=== PATIENT | female | born 1995 | race Caucasian/White ===

== ENCOUNTER 2023-06-15 11:21 | Outpatient (AMB) | payer OTHER, SELFPAY ==
--- NOTE | 2023-06-15 11:24 | A.OFFPC_ITS ---
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 Manufacturer'S Representative Required: No Accompanied by: Self / Same As Patient Allergies No Known Allergies [No Known Allergies*] Allergy (Verified 06/15/23 11:42) Medication List - Last Reconciled 06/15/23 by Chapo Terrazas CNP No Known Home Meds Tobacco use date assessed: 06/15/23 Dental Screening Dental Screen Date: 06/15/23 Did you have a dental visit in the last 12 months?: Yes Did you have a dental problem in the last 6 months where you did not have access to dental care?: No Was dental information given to patient?: Patient has dentist HPI HPI Comments History of Present Illness Details 27-year-old female presents to [facility] care. She notes she was last evaluated by her former PCP and had blood work done a year ago. She reports PMH significant for PCOS, prediabetes, Hidradenitis suppurativa, anxiety, and depression. She notes she was prescribed Metformin for PCOS. She is followed by endocrinology at [facility] for PCOS. She notes Hidradenitis supurativa skin lesions on the armpits, underneath the breasts, and in her perineal area. She followed Dermatology for several years and no treatment was effective. She was last seen by Dermatology 2 years ago. She wished to connect with and with dump truck operator but has to find one that her health plan covers. She notes she has never been on medications for anxiety and depression. She sees a therapist once monthly. She reports controlled symptoms. She reports an A1c was 5.8 on 05/25/2022. She notes she takes and multivitamins daily. She states she exercises routinely. She offers no complaints and denies acute symptoms. She notes her last pap smear was a year ago at [facility]: normal [facility] Medical History (Updated 06/15/23 @ 12:25 by Chapo Terrazas CNP) Hidradenitis suppurativa Diabetes History of PCOS Surgical History (Updated 06/15/23 @ 11:47 by Nilsa Delgado MA) H/O adenoidectomy History of tonsillectomy Family History (Updated 06/15/23 @ 11:47 by Nilsa Delgado MA) Maternal Grandmother Diabetes Social History Housing: Apartment Patient Tobacco Use Status: Never used Tobacco e-Cigarette/Vaping Use: Never Used service: No Current occupational status: employed 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 1. Little interest or pleasure in doing things: more than half the days 2. Feeling down, depressed, or hopeless: more than half the days 3. Trouble falling or staying asleep, or sleeping too much: nearly every day 4. Feeling tired or having little energy: nearly every day 5. Poor appetite or overeating: nearly every day 6. Feeling bad about yourself - or that you are a failure or have let yourself or your family down: several days 7. Trouble concentrating on things, such as reading the newspaper or watching television: nearly every day 8. Moving or speaking so slowly that other people could have noticed. Or the opposite - being so fidgety or restless that you have been moving around a lot more than usual: several days 9. Thoughts that you would be better off or of hurting yourself in some way: not at all Total score: 18 Depression Screening Interpretation: Positive Depression Screening Follow-up: Existing condition and In treatment Source: Developed by Drs. Subhash Mcclelland, Gina Bean, Elton Hanks and colleagues, with an educational lili from [employer]. Thrive Questionnaire Date Thrive assessed: 06/15/23 I am a: Patient What is your living situation today?: I have a steady place to live Within the past 12 months, did the food you bought not last and you didn't have the money to get more?: Often true Within the past 12 months, did you worry whether your food would run out before you got money to buy more?: Sometimes True Do you have trouble paying for medicines?: No Do you have trouble getting transportation to medical appointments?: No Do you have trouble paying your heating and electricity bill?: No Do you have trouble taking care of your child, family member or friend?: No Do you have trouble with day-to-day activities such as bathing, preparing meals, shopping, managing finances, etc.?: No Are you currently unemployed and looking for a job?: No Are you interested in more education?: No Please select the resources that you would like help with: Food Currently or been in a relationship where the following occur: no concerns reported AUDIT C Alcohol Use Questionnaire (AUDIT-C) 1. How often do you have a drink containing alcohol?: Never 3. How often do you have six or more drinks on one occasion?: Never Total Score: 0 LIVIER-7 AMB Questionnaire LIVIER-7 Date LIVIER - 7 assessed: 06/15/23 Feeling nervous, anxious, or on edge: 2 = More than half the days Not being able to stop or control worryin = Nearly every day Worrying too much about different things: 3 = Nearly every day Trouble relaxin = Nearly every day Being so restless that it is hard to sit still: 1 = Several days Becoming easily annoyed or irritable: 3 = Nearly every day Feeling afraid as if something awful might happen: 0 = Not at all Total LIVIER-7 score (0-4 normal; 5-9 mild; 10-14 moderate; 15-21 severe): 15 Source: Developed by Drs. Subhash Mcclelland, Gina Bean, Elton Hanks and colleagues, with an educational lili from [employer]. Review of Systems Const Details: Denies chills, Denies fatigue, Denies fever(s), Denies headache(s) and Denies weakness HEENT Denies change in vision, Denies dizziness, Denies headache(s), Denies hearing loss, Denies nasal congestion, Denies sinus pain, Denies sinus pressure and Denies sore throat Card Denies chest pain, Denies lightheadedness, Denies dyspnea and Denies other (palpitations) Resp Denies cough, Denies dyspnea and Denies wheezing GI Denies abdominal pain, Denies melena, Denies hematochezia, Denies change in bowel habits, Denies dyspepsia and Denies nausea Denies hematuria and Denies dysuria Musc Denies abnormal gait, Denies myalgias, Denies arthralgias, Denies numbness and Denies tingling Skin/Breast Reports as per HPI Neuro Denies abnormal gait, Denies dizziness, Denies headache(s), Denies memory loss, Denies numbness, Denies Sensory deficit (Neuro), Denies tingling and Denies weakness Psych Denies anxiety, Denies depression and Denies memory loss Endo Denies cold intolerance, Denies fatigue, Denies heat intolerance, Denies polydipsia and Denies polyuria Raoul/Lymph Denies easy bleeding and Denies easy bruising Aller/Immun Denies wheezing Physical exam (Primary Care) Vital Signs: Last Vital Signs Temp 97.3 F 06/15/23 11:28 Pulse 83 06/15/23 11:28 Resp 12 06/15/23 11:28 BP 126/64 06/15/23 11:28 Pulse Ox 99 06/15/23 11:28 Oxygen Delivery Method Room Air 06/15/23 11:28 BMI result Body Mass Index 36.1 Depression Screening Interpretation: Positive Depression Screening Follow-up: Existing condition and In treatment Currently or been in a relationship where the following occur: no concerns reported Const Other: General: no acute distress, well developed, alert and awake Nutritional Appearance: well nourished Orientation/consciousness: patient oriented x3 HENMT Head: Yes normocephalic and Yes atraumatic Ears: hearing grossly normal bilaterally and TM's normal bilaterally General nose exam: Normal external nose present and Normal nares present Mouth: Normal oral and palatal mucosa present and moist mucous membranes Teeth and gingiva: dentition normal Throat: Yes oropharynx normal Eyes Pupils: Equal, round and reactive pupils present and Pupil accommodation reflex normal EOM: EOMs intact bilaterally Neck Neck: Yes normal visual inspection, Yes no lymphadenopathy and Yes trachea midline Thyroid: Thyroid normal Carotids: no bruits Lymphatic: no lymphadenopathy noted Chest Chest palpation & inspection: normal inspection of the chest Resp Effort & Inspection: normal respiratory effort Auscultation: clear to auscultation bilaterally Cardio Rate: regular rate Rhythm: regular rhythm Heart sounds: S1 normal heart sound present, S2 normal heart sound present, no gallops, no murmurs and no rubs Bruits: no abdominal aortic bruits and no carotid bruits GI Palpation (GI): No Abdominal aortic bruit present, Soft to palpation, nontender, No hepatosplenomegaly present and No Rebound tenderness present Auscultation: normal bowel sounds General: Yes no CVA tenderness Back/Spine/Pelvis Back: no CVA tenderness Cervical Spine: cervical ROM normal and No Cervical spine tenderness Thoracic/Lumbar Spine: thoraco-lumbar ROM normal, No pain with thoraco-lumbar ROM, No thoracic spinal tenderness and No lumbar spinal tenderness Skin General: warm and dry. Normal skin color. Normal skin turgor Lesions: Hidradenitis suppurativa lesions noted to armpits and underneath her breast, no discharge, no overt infection Rashes: no rashes Trauma: no lacerations or abrasions Wounds: no wounds Nails: normal Neuro General: patient oriented x3, gait normal and CN's II-XI intact bilaterally Cranial nerves: Yes Equal, round and reactive pupils present Cognition (Neuro): normal cognition Gait exam (Neuro): Normal gait present Motor exam (neuro): 5/5 motor strength present throughout Sensory Exam: No Sensory deficit (Neuro) Deep tendon reflexes (DTR's): Right patellar reflex intensity grade: 2+ and Left patellar reflex intensity grade: 2+ Extrem General: Yes normal to inspection, No edema and No calf tenderness Psych Appearance: grossly normal Affect: normal affect Attitude: cooperative Thought process: Normal thought process present Assessment and Plan Assessment & Plan (1) Normal physical examination, routine: Code(s): Z00.00 - Encounter for general adult medical examination without abnormal f indings Plan: No significant physical restrictions or limitations noted Advised to get fasting blood work done and schedule a telehealth visit for labs review Follow-up with symptoms or concerns Verbalized understanding and agreed with treatment plan. (2) Hidradenitis suppurativa: Code(s): L73.2 - Hidradenitis suppurativa Plan: Hidradenitis suppurativa lesions noted to armpits and underneath her breast, no discharge, no overt infection She will search for a dump truck operator that her health plan covers and inform her PCP to place a referral Follow-up with worsening or new signs and symptoms Verbalized understanding and agreed with treatment plan. (3) History of PCOS: Code(s): Z87.42 - Personal history of other diseases of the female genital tract Plan: Continue follow-up with endocrinology as planned Return with symptoms or concerns Verbalized understanding and agreed with treatment plan. (4) Anxiety and depression: Code(s): F41.9 - Anxiety disorder, unspecified; F32.A - Depression, unspecified Plan: PHQ-9 and LIVIER-7 scores revealed moderately severe depression and moderate anxiety respectively Declines medication treatment Continue with therapy as planned Continue with routine exercise Follow-up with worsening or new symptoms Verbalized understanding and agreed with treatment plan. (5) Laboratory tests ordered as part of a complete physical exam (CPE): Code(s): Z00.00 - Encounter for general adult medical examination without abnormal findings Plan: Fasting labs ordered as part of a complete physical exam. Advised to fast for at least 10 hours before getting labs drawn. May drink water Verbalized understanding and agreed with treatment plan. (6) Obesity (BMI 35.0-39.9 without comorbidity): Code(s): E66.9 - Obesity, unspecified Plan: She weighs 237 lb, BMI is 36.1 Healthy diet encouraged Continue with routine exercise Verbalized understanding and agreed with treatment plan. Orders: Orders Complete Blood Count Auto Diff Today Z00.00 - Encounter for general adult medical examination without abnormal findings UA CC w/rflx Micro + Cult Today Z00.00 - Encounter for general adult medical examination without abnormal findings Comprehensive [place]. Panel Fast Today Z00.00 - Encounter for general adult m edical examination without abnormal findings Lipid Panel Today Z00.00 - Encounter for general adult medical examination without abnormal findings TSH reflex Free T4 Today Z00.00 - Encounter for general adult medical examination without abnormal findings Coding Level of Care Code New Pt Prev Care 18-39yr([id number] Diagnoses Normal physical examination, routine Z00.00 Hidradenitis suppurativa L73.2 History of PCOS Z87.42 Anxiety and depression F41.9; F32.A Laboratory tests ordered as part of a complete physical exam (CPE) Z00.00 Obesity (BMI 35.0-39.9 without comorbidity) E66.9
[2023-06-15 11:28] VITALS: BP 126/64; PULSE 83; RESP 12; TEMP 36.3; O2SAT 99; BMI 36.1
== END 2023-06-15 12:25 | disposition home or self-care (01) ==
PROVIDERS: PCP Hospitalist; Visit Provider Nurse Practitioner Family
DX: Z00.00 Encounter for general adult medical examination without abnormal findings (principal); E66.9 Obesity, unspecified; Z68.36 Body mass index [BMI] 36.0-36.9, adult; Z87.42 Personal history of other diseases of the female genital tract; F41.9 Anxiety disorder, unspecified; L73.2 Hidradenitis suppurativa; F32.A Depression, unspecified
CPT/HCPCS: 99385

== ENCOUNTER 2023-06-28 10:03 | Outpatient (REF) | payer OTHER, SELFPAY ==
[2023-06-28 10:59] LABS: MANUAL DIFF FLAG NO
[2023-06-28 11:12] LABS: Basophils Absolute Auto 0.1 X10*3/uL (0.0-0.2); Basophils Percent Auto 0.5 % (0-2); Eosinophils Absolute Auto 0.2 X10*3/uL (0.0-0.4); Eosinophils Percent Auto 1.7 % (0-4); Hematocrit 42.6 % (37.0-47.0); Hemoglobin 14.2 g/dl (12.0-16.0); Imm Gran Abs Auto 0.04 X10*3/uL (0.00-0.03); Imm Gran Pct Auto 0.3 % (0.0-0.4); Lymphocytes Absolute Auto 4.7 X10*3/uL (1.2-4.9); Lymphocytes Percent Auto 38.8 % (20-40); Mean Corpuscular HGB Conc 33.3 g/dl (31.0-35.0); Mean Corpuscular Volume 90.1 fL (80.0-98.0); Mean Platelet Volume 10.8 fL (9.4-12.3); Monocytes Absolute Auto 0.6 X10*3/uL (0.1-1.2); Monocytes Percent Auto 5.3 % (2-11); Neutrophils Absolute Auto 6.5 x10*3/uL (2.0-8.3); Neutrophils Percent Auto 53.4 % (45-73); Platelet Count 326 X10*3/uL (160-400); Red Blood Count 4.73 X10*6/uL (4.20-5.50); Red Cell Distribution Width 12.5 % (11.0-16.0); White Blood Count 12.1 X10*3/uL (4.8-10.8)
[2023-06-28 11:13] LABS: Appearance Urine Clear; Color Urine Yellow; Glucose Urine UA Negative (Negative); Leukocyte Esterase Urine Negative (Negative); Nitrite Urine Negative (Negative); PH 5.5 (5.0-9.0); Specific Gravity - Urine 1.015 (1.005-1.025); Urine Blood Negative (Negative); Urine Ketones Negative (Negative); Urine Protein Negative (Neg-Trace)
[2023-06-28 11:30] LABS: Alanine Aminotransferase 27 U/L (0-31); Albumin Level 4.3 g/dL (3.5-5.0); Alkaline Phosphatase 60 U/L (39-117); Anion Gap 10 (12-20); Aspartate Amino Transferase 20 U/L (5-31); Bilirubin Total 0.5 mg/dL (0.0-1.0); Blood Urea Nitrogen 9 mg/dL (9-16); Calcium 9.1 mg/dL (8.4-10.2); Carbon Dioxide 22 mmol/L (22-29); Chloride 109 mmol/L (96-108); Cholesterol 150 mg/dL (<200); Estimated Glomerular Filt Rate > 60; Glucose Fasting 83 mg/dL (60-99); HDL Cholesterol 38 mg/dL (>40); LDL Cholesterol Calculated 90 mg/dL (<100); Potassium 4.2 mmol/L (3.3-5.1); Sodium 137 mmol/L (135-145); Total Protein 7.4 g/dL (6.5-8.0); Triglycerides 111 mg/dL (<150)
[2023-06-28 11:49] LABS: TSH reflex Free T4 1.21 uIU/mL (0.32-4.0)
== END 2023-06-28 10:04 | disposition home or self-care (01) ==
LOC: HO.10HDL 10:03
PROVIDERS: Visit Provider Nurse Practitioner Family
DX: Z00.00 Encounter for general adult medical examination without abnormal findings (principal)
CPT/HCPCS: 36415; 80053; 80061; 81003; 84443; 85025

== ENCOUNTER 2023-06-30 16:24 | Outpatient (AMB) | payer OTHER, SELFPAY ==
--- NOTE | 2023-06-30 15:58 | A.OFFPC_ITS ---
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 Patient established care 2 weeks ago and had routine labs ordered. She offers no complaints and denies acute symptoms. 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 Subhash Mcclelland, Gina Bean, Elton Hanks and colleagues, with an educational lili from [employer]. Review of Systems Const Details: Const Denies chills, Denies fatigue, Denies fever(s), Denies headache(s) and Denies weakness ENT Denies dizziness and Denies headache(s) Card Denies chest pain, Denies lightheadedness, Denies dyspnea and Denies other (Palpitations) Resp Denies cough, Denies dyspnea, Denies wheezing and Denies other ( shortness of breath) GI Denies abdominal pain, Denies melena, Denies hematochezia, Denies change in bowel habits, Denies dyspepsia and Denies nausea Denies hematuria and Denies dysuria Musc Denies abnormal gait, Denies myalgias, Denies arthralgias, Denies numbness and Denies tingling Skin/Breast Denies rash, Denies unusual bruising and Denies wounds Neuro Denies abnormal gait, Denies dizziness, Denies headache(s), Denies memory loss, Denies numbness, Denies Sensory deficit (Neuro), Denies tingling and Denies weakness Psych Denies anxiety, Denies depression, Denies memory loss Endo Denies cold intolerance, Denies fatigue, Denies heat intolerance, Denies po lydipsia and Denies polyuria Aller/Immun Denies wheezing Physical exam (Primary Care) Tobacco/Smoking Status: Tobacco use Status Tobacco use date assessed 06/15/23 06/30/23 16:00 Patient Tobacco Use Status Never used Tobacco 06/30/23 16:00 e-Cigarette/Vaping Use Never Used 06/30/23 16:00 Thrive Assessment: Date of Thrive Assessment Date Thrive assessed 06/15/23 06/30/23 16:00 Const Other: Telehealth. 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 She does not want to initiate medication treatment at this time Advised to follow-up in 6 months anxiety and depression or return sooner with worsening or new symptoms Verbalized understanding and agreed with treatment plan. Coding Level of Care Code Tele Est Pt Level 2 (72604) Diagnoses Low HDL (under 40) E78.6
== END 2023-06-30 17:00 ==
PROVIDERS: PCP Hospitalist; Visit Provider Nurse Practitioner Family
DX: E78.6 Lipoprotein deficiency (principal)
CPT/HCPCS: 99212

== ENCOUNTER 2023-10-08 11:54 | Outpatient (AMB) | payer OTHER, SELFPAY ==
[2023-10-08 11:57] VITALS: BP 132/80; PULSE 88; RESP 13; TEMP 36.4; O2SAT 99; BMI 35.5
--- NOTE | 2023-10-08 11:57 | MHC.PC.OV ---
Vital Signs 10/08/23 11:57 Height 5 ft 8 in Weight 233 lb 8 oz BMI 35.5 BP 132/80 Blood Pressure Location Rt brachial Position Sitting Respiration 13 Pulse 88 Pulse Source Pulse Oximeter Temp 97.5 F Temp Source Temporal Artery Scan Pulse Oximetry (%) 99 Oxygen Delivery Method Room Air Intake Visit Reasons: right knee pain Intake Note: Patient is interested in getting ozempic and would like to make appt to get weightloss process started. 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 She has been lose weight for over a year. Dieting and exercising has not help. She has noted been able to get her weight below 200 lb She is followed by [facility] for PCOS. She was prescribed metformin which she stopped taking due to GI symptoms She states she had right knee pain due to hyperextension of the right knee but her symptoms have completely subsided. 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 Subhash Mcclelland, Gina Bean, Elton Hanks and colleagues, with an educational lili from [facility]. Review of Systems Const Details: Const Denies chills, Denies fatigue, Denies fever(s), Denies headache(s) and Denies weakness ENT Denies dizziness and Denies headache(s) Card Denies chest pain, Denies lightheadedness, Denies dyspnea and Denies other (Palpitations) Resp Denies cough, Denies dyspnea, Denies wheezing and Denies other ( shortness of breath) GI Denies abdominal pain, Denies melena, Denies hematochezia, Denies change in bowel habits, Denies dyspepsia and Denies nausea Denies hematuria and Denies dysuria Musc Denies abnormal gait, Denies myalgias, Denies arthralgias, Denies numbness and Denies tingling Skin/Breast Denies rash, Denies unusual bruising and Denies wounds Neuro Denies abnormal gait, Denies dizziness, Denies headache(s), Denies memory loss, Denies numbness, Denies Sensory deficit (Neuro), Denies tingling and Denies weakness Psych Denies anxiety, Denies depression, Denies memory loss Endo Denies cold intolerance, Denies fatigue, Denies heat intolerance, Denies polydipsia and Denies polyuria Aller/Immun Denies wheezing Physical exam (Primary Care) Vital Signs: Last Vital Signs Temp 97.5 F 10/08/23 11:57 Pulse 88 10/08/23 11:57 Resp 13 10/08/23 11:57 BP 132/80 10/08/23 11:57 Pulse Ox 99 10/08/23 11:57 Oxygen Delivery Method Room Air 10/08/23 11:57 BMI result Body Mass Index 35.5 Tobacco/Smoking Status: Tobacco use Status Tobacco use date assessed 06/15/23 10/08/23 12:08 Patient Tobacco Use Status Never used Tobacco 10/08/23 12:08 e-Cigarette/Vaping Use Never Used 10/08/23 12:08 Thrive Assessment: Date of Thrive Assessment Date Thrive assessed 06/15/23 10/08/23 12:08 Const Other: General: no acute distress and well developed Nutritional Appearance: well nourished Orientation/consciousness: patient oriented x3 HENMT Head: Yes normocephalic and Yes atraumatic Eyes General: appearance normal, both eyes and all related structures Pupils: Equal, round and reactive pupils present EOM: EOMs intact bilaterally Resp Effort & Inspection: normal respiratory effort Auscultation: clear to auscultation bilaterally Cardio Rate: regular rate Rhythm: regular rhythm Heart sounds: S1 normal heart sound present, S2 normal heart sound present, no gallops, no murmurs and no rubs GI Palpation (GI): No Abdominal aortic bruit present, Soft to palpation, nontender, No hepatosplenomegaly present and No Rebound tenderness present Auscultation: normal bowel sounds General: Yes no CVA tenderness Back/Spine/Pelvis Back: no CVA tenderness Cervical Spine: cervical ROM normal and No Cervical spine tenderness Thoracic/Lumbar Spine: thoraco-lumbar ROM normal, No pain with thoraco-lumbar ROM, No thoracic spinal tenderness and No lumbar spinal tenderness Extrem General: Yes normal to inspection, No edema and No calf tenderness Skin General: warm and dry. Normal skin color. Normal skin turgor Neuro General: patient oriented x3, gait normal and no focal neuro deficit Cranial nerves: Yes Equal, round and reactive pupils present Cognition (Neuro): normal cognition Gait exam (Neuro): Normal gait present Sensory Exam: No Sensory deficit (Neuro) Psych Appearance: grossly normal Affect: normal affect Attitude: cooperative Thought process: Normal thought process present Assessment and Plan Assessment & Plan (1) Obesity (BMI 35.0-39.9 without comorbidity): Code(s): E66.9 - Obesity, unspecified Plan: Reports difficulty getting or weight below 200 lb despite routine exercise and healthy dietary changes She lost 4 lb since her last visit. 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
== END 2023-10-08 12:35 | disposition home or self-care (01) ==
PROVIDERS: PCP Nurse Practitioner Family; Visit Provider Nurse Practitioner Family
DX: E66.9 Obesity, unspecified (principal); Z68.35 Body mass index [BMI] 35.0-35.9, adult
CPT/HCPCS: 99213

== ENCOUNTER → 2023-12-07 10:18 | Outpatient (BNVA) | payer OTHER, SELFPAY | PROVIDERS: PCP Nurse Practitioner Family; Visit Provider Physician Assistant Surgical ==

== ENCOUNTER 2024-01-05 10:29 | Outpatient (AMB) | payer OTHER, SELFPAY ==
--- NOTE | 2024-01-05 10:02 | A.OFFVIS_ITS ---
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 She heard about our program from her PCP. Her goal is to lose weight and achieve a healthy lifestyle. She reports first being concerned about her weight over the last several years as she was recently dx w pre dm, intolerant to metformin, highest weight to date was 263. Current weight is 217.4 pounds with a BMI of 33.1. She has tried multiple methods of weight loss including fad diets without permanent results. She lives with her roommate. 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 She wakes at:?5 am, and goes to bed at?9pm. Dinner is at 6pm. Breakfast: 2 eggs and toast or yogurt and fruit AM snack: skip Lunch: skip or fast food PM snack: chips Dinner: rice and beans or mashed potato, meat After dinner: candy Other snacks: as above Liquids: 16 oz water, 24 oz coke daily, rare juice Alcohol/marijuana/tobacco intake: no etoh, smoke cannabis (none in 2 weeks), no tobacco Exercise: [employer] GERD score: 0 JULIO score: 7 ESS score: 6 QOL score: 106 [facility] Medical History Hidradenitis suppurativa Diabetes History of PCOS Surgical History History of removal of cyst H/O adenoidectomy History of tonsillectomy Family History Maternal Grandmother Diabetes Mother No problems noted. Father No problems noted. 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 ? Adequate sleep of 7-8 hours per night discussed, awakening at 5 am and going to bed around 9 pm ? Purchase body composition analyzer scale ([employer] recommended) and check weight weekly. The best time to do this is first thing in the morning after going to the bathroom. 1. Nutritional counseling: Be sure to careful read the number of scoops per shake Start with 2 Celebrate shakes ([facility] [employer], [employer], [employer]), First shake (2 scoops in 12 oz unsweetened almond milk) at 6am-8am, Second shake (2 scoops in 12 oz unsweetened almond milk) 10am-12pm 1 protein bar ([employer] bars at [facility] [employer], [employer], [employer]) at 2pm-4pm. Dinner at 6pm (9 forks of protein and 9 forks of salad/vegetables). Meal to include lean meat (beef, fish, pork, turkey, chicken), cooked vegetables or a salad with olive oil and/or fruits (berries, pears, apples, kiwi). Avoid salt, breads, potatoes, rice, pasta, desserts. fresh fruit, eiither 3/4 cup fresh berries or an apple or pear or kiwi at 8 pm if you wish Try to drink 64 oz of water daily and avoid soda and juices. ?2. Each shake would be drunk slowly, like coffee in a period of 2 hours. ?3. Cut each bar in 4 pieces and eat each piece in 30 min ?to make each bar last 2 hours. ?4. I emphasized the importance of measuring accurately the food portion and measure it carefully when serving the food on the plate ?5. The meal portions include 9 full-size forks of meat and 9 full-size forks of salad. You always eat the meat portion but you can replace up to half of the forks of salad/vegetables with rice, potatoes or pasta, or a fruit ?if you like. The less you do it the better weight loss will be. ?6. One full-size fork is what can be scooped on the fork without falling aside and not what can be bit with the fork. Use regular forks like those you find in a typical restaurant. ?7.? Please send me weight measurements as soon as possible and then once a week. Always include your diet and exercise plan. Alternatively come weekly at the office for weight checks and send me the measurements. ?8. Exercise counseling: Begin by watching a stretching for beginners video. Start slowly and begin to stretch your muscles. You should do this before and after each exercise session to prevent injury. Please continue to go to [employer] gym near your home. Ask the workforce investment act career manager or one of the trainers how to use the machines if you are unfamiliar with them. Start elliptical with a resistance of 2. Increase resistance by 1 every 3 min to your most comfortable resistance with a max resistance of 8. Reduce the resistance by 1 every 3 minutes back down to 2 and repeat cycles for 300 calories. Alternatively, start treadmill with a speed of 3.0 and incline of 0, increasing incline by 1 every 3 minutes to the highest comfortable level (max 6 for now) then decrease in the same fashion. Repeat process to a goal of 300 calories. Goal of 2000 calories burned or more weekly. You may also consider use of the stationary bike. The easiest would be to chose the fat-burn or interval training program on the machine and do this until you reach the 300 calorie goal. Alternatively, you can manually adjust the resistance in a similar fashion as mentioned above, (resistance of 2-8 with a goal speed of 12 mph). Tracking calories is essential. 9. Alternatively start walking outside daily, tracking calories with a goal of 300 calories per day, daily. You can download the saloni [employer] which can track your time, distance and calories while walking outside. You press start in the saloni when you start and then stop when you are finished. 10.? It is important to text me your weight weekly 11. Discussed and answered all questions regarding?obtained consent to participate in the [place] [facility]?Registry. 12. Please follow the diet plan exactly, without any change. If you do not like something about the plan or you feel hungry, you need to communicate with me so I can help you revise the plan. You should not change the plan yourself. Text me at [phone] 13. Goal is to lose at least 10-12 pounds in the first month Patient is morbidly obese and is not considered stable at this time.?I spent a total of 70 minutes reviewing/updating records, examining the patient and counseling the patient on weight management as detailed above. Medications: New adalimumab (Humira(CF) Pen) (0.8 mL) 80 mg subcutaneously q 2 weeks; 2 days 1 ea 0RF Telehealth Telehealth Location of provider rendering services: practice address Location of patient: address on file Patient Identification confirmed using: Name, : Yes Telehealth method: voice only Patient verbally consented to treatment: Yes Patient verbally consented to billing insurance company: Yes Patient informed of any privacy concerns related to visit: Yes Minutes spent on Phone/Video with Pt.: 40 Coding Level of Care Code Tele New Pt Level 5 (09293) Diagnoses Obesity (BMI 30-39.9) E66.9 Time Spent (min) 70
[2024-01-05 10:12] VITALS: BMI 33.1
== END 2024-01-05 11:03 | disposition home or self-care (01) ==
LOC: HO.HBS 10:29
PROVIDERS: PCP Nurse Practitioner Family; Visit Provider Physician Assistant Surgical
DX: E66.9 Obesity, unspecified (principal)
CPT/HCPCS: 99205; 99417

== ENCOUNTER → 2024-01-05 10:29 | Outpatient (BNVA) | payer OTHER, SELFPAY | PROVIDERS: PCP Nurse Practitioner Family; Visit Provider Physician Assistant Surgical ==